=== PATIENT | male | born 1945 | race Caucasian/White ===

== ENCOUNTER 2018-09-14 10:39 | Outpatient (CLI) | payer MEDICARE, BC, SELFPAY ==
--- NOTE | 2018-09-14 10:54 | DI.US_ITS ---
SYMPTOMS/DIAGNOSIS: PROSTATE CA, C61, EDEMA OF LOWER EXTREMITY, R60.0, RIGHT LEG LARGER, SWELLING, R22.41, CURRENTLY UNDERGOING RADIATION THERAPY DUPLEX VENOUS ULTRASOUND, RIGHT LOWER EXTREMITY: Duplex evaluation of the deep venous system was performed according to the usual protocol. The deep veins are freely compressible throughout to the level of the popliteal veins. There is normal Doppler flow visible throughout and there is excellent flow augmentation with manual calf compression. CONCLUSION: No evidence of deep venous thrombosis.
== END 2018-09-14 10:59 ==
PROVIDERS: PCP Internal Medicine; Visit Provider Radiology Radiation Oncology
DX: C61 Malignant neoplasm of prostate (principal); R60.0 Localized edema; R22.41 Localized swelling, mass and lump, right lower limb; Z92.3 Personal history of irradiation
CPT/HCPCS: 93971